=== PATIENT | female | born 1970 | race Caucasian/White ===

== ENCOUNTER → 2023-12-01 16:48 | Outpatient (REF) | payer BC, SELFPAY ==
[2023-12-01 18:02] LABS: % Basophils 0.2 % (0-2); % Immature Granulocytes 0.3 % (0-0.5); % Lymphocytes 35.1 % (20.5-51.1); % Monocytes 10.2 % (1.7-9.3); % Neutrophils 53.2 % (42.2-75.2); Absolute Eosinophils 0.1 10^3/uL (0-0.7); Absolute Lymphocytes 2.2 10^3/uL (1.2-3.4); Absolute Monocytes 0.6 10^3/uL (0.1-0.6); Absolute Neutrophils 3.3 10^3/uL (1.4-6.5); Hematocrit 44.2 % (37.0-47.0); Hemoglobin 14.4 g/dL (12.0-16.0); Mean Corp Hgb Conc. 32.6 g/dL (33.0-37.0); Mean Corpuscular Hgb 28.6 pg (27.0-31.0); Mean Corpuscular Volume 87.9 fL (81.0-99.0); Nucleated Red Blood Cells % 0 %; Platelet Count 40 10^3/uL (130-400); Red Blood Cell Count 5.03 10^6/uL (4.20-5.40); Red Cell Dist. Width 12.8 % (11.5-14.5); White Blood Cell Count 6.3 10^3/uL (4.8-10.8)
== END ==
LOC: REG 16:48
PROVIDERS: ATTENDING PHYSICIAN Internal Medicine Hematology & Oncology; FAMILY PHYSICIAN Physician Assistant Medical
DX: D69.3 Immune thrombocytopenic purpura (principal); N61.0 Mastitis without abscess
CPT/HCPCS: 36415; 85025

== ENCOUNTER → 2023-12-11 13:30 | Outpatient (REF) | payer BC, SELFPAY ==
[2023-12-11 14:14] LABS: % Basophils 0.1 % (0-2); % Eosinophils 0.6 % (0-6); % Immature Granulocytes 0.4 % (0-0.5); % Lymphocytes 33.7 % (20.5-51.1); % Monocytes 9.6 % (1.7-9.3); % Neutrophils 55.6 % (42.2-75.2); Absolute Lymphocytes 2.4 10^3/uL (1.2-3.4); Absolute Monocytes 0.7 10^3/uL (0.1-0.6); Hematocrit 44.1 % (37.0-47.0); Hemoglobin 14.5 g/dL (12.0-16.0); Mean Corp Hgb Conc. 32.9 g/dL (33.0-37.0); Mean Corpuscular Hgb 28.5 pg (27.0-31.0); Mean Corpuscular Volume 86.6 fL (81.0-99.0); Nucleated Red Blood Cells % 0 %; Platelet Count 38 10^3/uL (130-400); Red Blood Cell Count 5.09 10^6/uL (4.20-5.40); Red Cell Dist. Width 12.9 % (11.5-14.5); White Blood Cell Count 7.1 10^3/uL (4.8-10.8)
== END ==
LOC: REG 13:30
PROVIDERS: ATTENDING PHYSICIAN Internal Medicine Hematology & Oncology; FAMILY PHYSICIAN Physician Assistant Medical
DX: D69.3 Immune thrombocytopenic purpura (principal); N61.0 Mastitis without abscess
CPT/HCPCS: 36415; 85025

== ENCOUNTER 2023-12-15 13:17 | Outpatient (RCR) | payer BC, SELFPAY ==
[2023-12-15 13:28] LABS: % Basophils 0.1 % (0-2); % Immature Granulocytes 0.2 % (0-0.5); % Monocytes 4.3 % (1.7-9.3); % Neutrophils 83.4 % (42.2-75.2); Absolute Lymphocytes 1.4 10^3/uL (1.2-3.4); Absolute Monocytes 0.5 10^3/uL (0.1-0.6); Absolute Neutrophils 9.7 10^3/uL (1.4-6.5); Hematocrit 43.7 % (37.0-47.0); Hemoglobin 14.6 g/dL (12.0-16.0); Mean Corp Hgb Conc. 33.4 g/dL (33.0-37.0); Mean Corpuscular Hgb 29.1 pg (27.0-31.0); Mean Corpuscular Volume 87.2 fL (81.0-99.0); Mean Platelet Volume 13.5 fL (7.4-10.4); Platelet Count 100 10^3/uL (130-400); Red Blood Cell Count 5.01 10^6/uL (4.20-5.40); White Blood Cell Count 11.6 10^3/uL (4.8-10.8)
== END 2023-12-27 23:59 | disposition home or self-care (01) ==
LOC: OID 13:17
PROVIDERS: Internal Medicine Hematology & Oncology; ATTENDING PHYSICIAN Internal Medicine Gastroenterology; FAMILY PHYSICIAN Physician Assistant Medical
DX: D69.3 Immune thrombocytopenic purpura (principal); N61.0 Mastitis without abscess
CPT/HCPCS: 36415; 85025; 86850; 86900; 86901

== ENCOUNTER → 2023-12-17 06:36 | Day surgery (SDC) | payer BC, SELFPAY | LOC: GI 06:36 | PROVIDERS: ATTENDING PHYSICIAN Internal Medicine Gastroenterology | DX: K63.5 Polyp of colon (principal); K57.30 Diverticulosis of large intestine without perforation or abscess without bleeding; K62.1 Rectal polyp; K64.8 Other hemorrhoids; R93.3 Abnormal findings on diagnostic imaging of other parts of digestive tract | CPT/HCPCS: 45385; 45380; 88305 ==

== ENCOUNTER 2023-12-23 17:09 | Observation (INO) | payer BC, SELFPAY ==
[2023-12-23] VITALS (10 sets, daily range): BP systolic 99–132; BP diastolic 70–84; BMI 34.4
--- NOTE | 2023-12-23 13:21 | ED.GENMED ---
History of Present Illness
General
Chief Complaint: Rectal Bleeding
Source: patient and physician
Exam Limitations: none
Time Seen by Provider: 12/23/23 12:48
Nursing documentation reviewed up to this point in time: agreed with
Travel History
Have you had any contact with someone who has COVID-19?: No
Do you have any symptoms of coronavirus? Fever > 100 degrees, chills, cough, shortness of breath, sore throat, loss of taste or smell, muscle aches, or headache?: No
History of Present Illness
History of Present Illness:
53-year-old female with past medical history of thrombocytopenia, anxiety presenting to the emergency department today with concerns of ongoing GI bleeding after having colonoscopy 6 days ago and multiple polyps removed. Has had some mild achiness
to the abdomen no lightheadedness no chest pain or shortness of breath. She is also claimed that the stool is also been dark in color.
Past History
Past History
ED Past Medical History: Other (Thrombocytopenia, celiac disease, fibromyalgia, rheumatoid arthritis)
ED Past Surgical History: Gynecological, Orthopedic and Other (Breast reduction)
Social History
Tobacco: Former smoker
Drug: None
Personal:
Living: with family
Employment: Employed
Family History
Family History: Other
Review of Systems
Review of Systems
Allergies reviewed?: Yes
All Other Systems: ROS reviewed and negative except as documented in HPI and ROS
Phy Exam
Physical Exam
Physical Exam:
GENERAL: Alert , in no apparent distress
EYE: pupils equal and reactive
NECK: Supple, no significant adenopathy.
ENT: o/p clr, mmm.
CARDIAC: Regular rate and rhythm .
LUNGS: Clear breath sounds bilaterally, no acute respiratory distress, no wheezes/rales/rhonchi
ABDOMEN: Mild diffuse abdominal pain. Additionally patient's rectal examination revealed a mixture of red blood and dark brown stool
NEUROLOGICAL: Alert and oriented, no focal neuro deficits
SKIN: Warm and dry, skin intact.
MUSCULOSKELETAL: No edema, well perfused.
PSYCH: Normal and appropriate interaction.
Course
Orders/Labs/Results
Orders:
Orders
12/23/23 Lunch
Clear Liquid
At Your Request: Full Participation
Clear Liquids: No red liquids
12/23/23 13:08
Type+Screen Urgent
CBC/With Diff [Complete Blood Count/With Diff] Urgent
CMP [Comprehensive Metabolic Panel] Urgent
12/23/23 13:11
CT Abd/Pel (IV only)-DH only Urgent
Comment:
Reason For Exam: diffuse pain abd after [polyp removakl last week
12/23/23 14:56
* Blood Bank Products Urgent
Blood Bank Products: *Plt Single Donor Leuko
Quantity: 1
Transfuse Today: Yes
Reason: Bleeding
Abnormal Lab Results
12/23/23
13:08
MCHC 32.9 L g/dL
(33.0-37.0)
Plt Count 44 L 10^3/uL
(130-400)
Abs Immat Gran (auto) 0.1 H 10^3/uL
(0-0.05)
Absolute Monos (auto) 0.8 H 10^3/uL
(0.1-0.6)
Immature Gran % 0.9 H %
(0-0.5)
Monocytes % 9.8 H %
(1.7-9.3)
AST 40 H U/L
(14-36)
ALT 54 H U/L
(0-35)
12/23/23 13:08
12/23/23 13:08
Vital Signs
Initial and Last Documented VS:
Initial Vital Signs
Temp Pulse Resp BP Pulse Ox
98.3 F 95 16 132/83 98
12/23/23 12:31 03/27/24 12:31 12/23/23 12:31 12/23/23 12:31 12/23/23 12:31
Last Documented Vital Signs
Temp Pulse Resp BP Pulse Ox
98 F 81 16 99/84 99
12/23/23 16:10 12/23/23 16:10 12/23/23 16:10 12/23/23 16:10 12/23/23 16:10
MDM/Problems Addressed
MDM/Problems Addressed:
53-year-old female presenting to the emergency department with concerns of ongoing bleeding after colonoscopy 6 days ago where she had multiple polyps removed. Stool here is a dark brown almost black in color as well as mixed in red blood. No
obvious hemorrhage mild discomfort throughout the abdomen. Case discussed with GI plan to get a CT scan and labs for further assessment. CT scan without emergent findings. Patient platelets were low in the 40,000's. Patient was given platelets
will be admitted for monitoring to ensure that bleeding is improving concerning her hemoglobin decreased by 2 points in the last week.
*Critical Care Note
Total Time (30-74mins, 75-104mins- exclusive of procedures): Not Applicable
ED Attending Note
-
Portions of this chart may have been created with voice recognition software.� Occasional wrong word or��sound alike� substitutions may have occurred due to the inherent limitations of voice recognition software.
Discharge Plan
Departure
Patient Disposition: Admit
Date of Disposition: 12/23/23
Time of Disposition: 16:44
Admit to: Med/Surg
Admit to doctor: Letty
Presentation/result/management discussed w/ accepting MD/DO: Hospitalist
Patient with high blood pressure during this ER visit?: No
Condition: Good
Covid-19: Not Applicable
Discharge Problem:
Acute GI bleeding, Thrombocytopenia
Prescriptions:
No Action
venlafaxine 75 MG capsule,extended release 24hr
75 mg PO DAILY
ascorbic acid (vitamin C) [Vitamin C] 1,000 MG tablet
1,000 mg PO DAILY
atorvastatin 10 mg Tablet
10 mg PO DAILY
oxybutynin chloride 10 mg Tablet Extended Release 24hr
10 mg PO DAILY
omeprazole 20 mg Capsule,Delayed Release(Dr/Ec)
20 mg PO QPM
vitamin B complex Tablet
1 tab PO DAILY
cholecalciferol (vitamin D3) 25 mcg (1,000 unit) Tablet
25 mcg PO DAILY
omega 4-ggk-ota-fish oil [Fish Oil] 1,000 mg (120 mg-180 mg) Capsule
1 cap PO QPM
red yeast rice 600 mg Tablet
600 mg PO QPM
milk thistle
1 tab PO QPM
Referrals:
Leonor Arroyo PA [Family Provider] -
Interventions
Interventions:
*Risk Screen - Suicide Last Done: 12/23/23 12:31
*General Assessment Last Done: 12/23/23 12:31
*Neglect/Abuse Screening Last Done: 12/23/23 12:31
*ED COVID-19 Vaccine History Last Done: 12/23/23 13:13
GS-Znzhbt-Bgaidfjnhk Assessment Last Done: 12/23/23 13:13
ED- Cardiac Assessment Last Done: 12/23/23 13:13
ED- Pulmonary Assessment Last Done: 12/23/23 13:13
Discharge Date and Time
Print Language: BENGALI
[2023-12-23 13:22] LABS: % Eosinophils 0.5 % (0-6); % Immature Granulocytes 0.9 % (0-0.5); % Lymphocytes 32.1 % (20.5-51.1); % Monocytes 9.8 % (1.7-9.3); % Neutrophils 56.7 % (42.2-75.2); Absolute Immature Granulocytes 0.1 10^3/uL (0-0.05); Absolute Lymphocytes 2.6 10^3/uL (1.2-3.4); Absolute Monocytes 0.8 10^3/uL (0.1-0.6); Absolute Neutrophils 4.5 10^3/uL (1.4-6.5); Hematocrit 37.1 % (37.0-47.0); Hemoglobin 12.2 g/dL (12.0-16.0); Mean Corp Hgb Conc. 32.9 g/dL (33.0-37.0); Mean Corpuscular Hgb 28.7 pg (27.0-31.0); Mean Corpuscular Volume 87.3 fL (81.0-99.0); Nucleated Red Blood Cells % 0 %; Red Blood Cell Count 4.25 10^6/uL (4.20-5.40); Red Cell Dist. Width 13.2 % (11.5-14.5); White Blood Cell Count 7.9 10^3/uL (4.8-10.8)
[2023-12-23 13:34] LABS: ALT (SGPT) 54 U/L (0-35); AST (SGOT) 40 U/L (14-36); Albumin 4.4 g/dl (3.5-5.0); Alkaline Phosphatase 95 U/L (38-126); Blood Urea Nitrogen 15 mg/dl (7-17); Calcium 9.6 mg/dl (8.4-10.2); Carbon Dioxide 28 mmol/L (22-30); Chloride 104 mmol/L (98-107); Glucose 96 mg/dl (70-99); Potassium 3.8 mmol/L (3.5-5.1); Sodium 137 mmol/L (135-145); Total Bilirubin 0.5 mg/dl (0.2-1.3); Total Protein 7.8 g/dl (6.3-8.2); eGFR > 60.00
[2023-12-23 13:39] LABS: Platelet Count 44 10^3/uL (130-400)
--- NOTE | 2023-12-23 14:34 | CON.GI ---
Addendum entered and electronically signed by Yevgeniy Villafana MD 12/23/23 20:14:
I saw and examined the patient.
The PA's note was reviewed and I agree with the note.
Comment:
The pt is a 53 year old female with h/o ITP, GERD, hypercholesterolemia, celiac disease, hepatic steatosis who p/w melena after recent colonoscopy. She was seen by oncology and given steroid prior to procedure with platelets up to 100,000. She
completed colonoscopy 12/16 with diverticulosis normal ileum and resections of multiple sub-centimeter polyps, and had been having melena since. Rectal in ER with red and some dark brown stool. She was noted to have thrombocytopenia with platelets
down to 44k. Hgb 12.2 on admission.
Impression / Rec:
1. Melena after polypectomy - consistent with polypectomy bleed, likely 2/2 thrombocytopenia (44k) from ITP. Agree with platelet tx. If her plt improves and Hgb remains stable, anticipate early d/c, although may need hematology input for
sustaining plt > 50k until her post polypectomy bleed resolves.
Original Note:
Consultation
-
Date/Time Consultation Requested: 12/23/23 1310
Date/Time Consultation Performed: 12/23/23 1430
Requesting Provider: Silvano Woodson PA-C
Performing Provider: ANNY Kenny, Yevgeniy Villafana MD
Reason for Consultation: rectal bleeding
Medical History
Chief Complaint / HPI
Chief Complaint: blood stools
History of Present Illness:
Pt is a 53yo with hx ITP with chronic low platelets, GERD, hypercholesterolemia, rectocele, fibromyalgia, celiac disease, ITP, psoriasis, pre DM, anxiety, thyroid nodule, hepatic steatosis, rectocele,constipation, hyperhidrosis, fatty liver,
elevated LFT's. She completed virtual colonoscopy in September with cecal, distal ascending and sigmoid polyp. She was seen by oncology and given steroid prior to procedure with platelets up to 100,000. She completed colonoscopy 12/16 with
diverticulosis normal ileum, 6 mm AC polyp- TA, 3 mm distal AC polyp HP, 5 mm sigmoid polyp - HP and 2 mm rectal polyp- HP. she states since procedure she has been seeing formed black stools and some red stool with some red blood with dripping.
Rectal in ER with red and some dark brown stool with platelets down to 44,000 on admission. hbg was 14. 6 on 12/14 and drop to 12.[address] on admission with fat containing umbilical hernia, fatty liver, small HH.
Pt otherwise denies dysphagia, GERD, nausea, vomiting, abdominal pain, diarrhea, or constipation since colonoscopy but noted with chronic constipation with Miralax and Benefiber use. No anticoagulation prior to admission.
Past Medical History
Past Medical History: GERD, Hypercholesterolemia and Other (fibromyalgia, celiac disease, ITP, psoriasis, pre DM, anxiety, thyroid nodule, hepatic steatosis, rectocele,constipation, hyperhidrosis, fatty liver, elevated LFT's )
Past Surgical History: Gynecological (LEEP, breast BX 2021 and 2022), Orthopedic (rotator cuff, biceps repair, arthroscopy) and Other (facial surgery, endometrial ablation)
Social History
Tobacco: Non-Smoker
Alcohol: None
Drug: None
Personal:
Living: With Family
Family History
Family History: Adopted
Allergies / Home Medications
Allergy/AdvReac Type Severity Reaction Status Date / Time
No Known Allergies Allergy Verified 12/23/23 12:31
�Medication �Instructions �Recorded
venlafaxine 75 mg capsule,extended 75 mg PO DAILY 07/08/18
release 24 hr
ascorbic acid (vitamin C) 1,000 mg 1,000 mg PO DAILY 11/02/19
tablet (Vitamin C)
atorvastatin 10 mg tablet 10 mg PO DAILY 12/23/23
cholecalciferol (vitamin D3) 25 25 mcg PO DAILY 12/23/23
mcg (1,000 unit) tablet
milk thistle 1 tab PO QPM 12/23/23
omega 9-lgq-lfp-fish oil 1,000 mg 1 cap PO QPM 12/23/23
(120 mg-180 mg) capsule (Fish Oil)
omeprazole 20 mg capsule,delayed 20 mg PO QPM 12/23/23
release
oxybutynin chloride 10 mg 10 mg PO DAILY 12/23/23
tablet,extended release 24 hr
red yeast rice 600 mg tablet 600 mg PO QPM 12/23/23
vitamin B complex 1 tab PO DAILY 12/23/23
Review of Systems
-
History Source: Patient
Constitutional: Reports Weight Loss (few lbs )
EENT: Reports No Symptoms
Respiratory: Reports No Symptoms
Cardiac: Reports No Symptoms
Abdomen/GI: Reports Bloody Stools and Black Stools
: Reports No Symptoms
Musculoskeletal: Reports No Symptoms
Skin: Reports No Symptoms
Neurological: Reports No Symptoms
Endocrine: Reports No Symptoms
Hematologic/Lymphatic: Reports Bleeding
Vital Signs
Temp Pulse Resp BP Pulse Ox
98.3 F 95 16 132/83 98
12/23/23 12:31 12/23/23 12:31 12/23/23 12:31 12/23/23 12:31 12/23/23 12:31
Physical Exam
Exam
General: Well Developed, Well Nourished and No Apparent Distress
HEENT: Normocephalic and Anicteric
Respiratory: Clear
Cardiac: Regular Rhythm
GI: Soft, Non Tender and Non Distended
Rectal: Other (? tiny posterior fissure no bleeding, ER rectal dark brown and red stool)
Musculoskeletal: No Clubbing and No Cyanosis
Skin: Warm and Dry
Neuro: Awake, Alert and AO x 3
Psych: Calm
Results
WBC 7.9 10^3/uL (4.8-10.8) 12/23/23 13:08
Hgb 12.2 g/dL (12.0-16.0) 12/23/23 13:08
Hct 37.1 % (37.0-47.0) 12/23/23 13:08
MCV 87.3 fL (81.0-99.0) 12/23/23 13:08
Plt Count 44 10^3/uL (130-400) L 12/23/23 13:08
Absolute Neuts (auto) 4.5 10^3/uL (1.4-6.5) 12/23/23 13:08
Sodium 137 mmol/L (135-145) 12/23/23 13:08
Potassium 3.8 mmol/L (3.5-5.1) 12/23/23 13:08
Chloride 104 mmol/L (98-107) 12/23/23 13:08
Carbon Dioxide 28 mmol/L (22-30) 12/23/23 13:08
BUN 15 mg/dl (7-17) 12/23/23 13:08
Creatinine 0.7 mg/dL (0.6-1.0) 12/23/23 13:08
Calcium 9.6 mg/dl (8.4-10.2) 12/23/23 13:08
Total Bilirubin 0.5 mg/dl (0.2-1.3) 12/23/23 13:08
AST 40 U/L (14-36) H 12/23/23 13:08
ALT 54 U/L (0-35) H 12/23/23 13:08
Alkaline Phosphatase 95 U/L (38-126) 12/23/23 13:08
Diagnostic Image Results:
12/23/23 CT with IV contrast
Likely tiny fat only containing umbilical hernia.
No right lower quadrant inflammatory changes, intestinal obstruction, obstructive uropathy or free air.
Probable mild diffuse fatty liver.
Possible small hiatal hernia.
virtual colonoscopy 09/2023
6.8 mm sessile polyp in the cecum.
4.7 mm sessile polyp between folds in the distal ascending colon.
4.4 mm sessile polyp in the sigmoid colon.
12/17/23 Non-bleeding internal hemorrhoids.
- Diverticulosis in the sigmoid colon and in the
descending colon.
- The examination was otherwise normal.
- The examined portion of the ileum was normal.
- One 6 mm polyp in the ascending colon, removed with
a cold snare. Resected and retrieved.
- One 3 mm polyp in the distal ascending colon,
removed with a jumbo cold forceps. Resected and
retrieved.
- One 5 mm polyp in the sigmoid colon, removed with a
jumbo cold forceps. Resected and retrieved.
- One 2 mm polyp in the rectum, removed with a jumbo
cold forceps. Resected and retrieved.
Assessment / Plan
-
Pt is a 53yo with hx ITP with chronic low platelets, GERD, hypercholesterolemia, rectocele, fibromyalgia, celiac disease, ITP, psoriasis, pre DM, anxiety, thyroid nodule, hepatic steatosis, rectocele,constipation, hyperhidrosis, fatty liver,
elevated LFT's. She completed virtual colonoscopy in September with cecal, distal ascending and sigmoid polyp. She was seen by oncology and given steroid prior to procedure with platelets up to 100,000. She completed colonoscopy 12/16 with
diverticulosis normal ileum, 6 mm AC polyp- TA, 3 mm distal AC polyp HP, 5 mm sigmoid polyp - HP and 2 mm rectal polyp- HP. she states since procedure she has been seeing formed black stools and some red stool with some red blood with dripping.
Rectal in ER with red and some dark brown stool with platelets down to 44,000 on admission. hbg was 14. 6 on 12/14 and drop to 12.[address] on admission with fat containing umbilical hernia, fatty liver, small HH.
-post polypectomy bleeding
-ITP with thrombocytopenia
-constipation
-possible small fissure on exam
other medical problems:
-GERD
-hypercholesterolemia
-fibromyalgia
-celiac disease
-psoriasis
-pre DM
-anxiety
-hepatic steatosis
-rectocele
PLAN:
etiology of bleeding related to post polypectomy bleeding in setting of ITP and low platelets vs other (very small posterior fissure noted on exam)
admit for monitoring
pt was given steroids prior to colonoscopy now off but platelets now down to 44,[address] Almanzar([facility] hematology) and DrJitendra Do agree with platelet transfusion can consider further steroid course
if bleeding persists consider repeat colonoscopy with endoscopic treatment
trend CBC
ok for clear diet-- gluten free diet when advanced
updated pt on plan
will follow
-
-
Thank you for consultation and allowing me to participate in the patient's care. Please call the region manager GI physician during the after hours with any questions or concerns.
--- NOTE | 2023-12-23 16:48 | HPS.HSE ---
Family Physician
-
Family Physician: Leonor Arroyo
Chief Complaint
-
rectal bleeding
History of Present Illness
53-year-old female with past medical history of anxiety, ITP, GERD, hypercholesteremia, rectocele, fibromyalgia, celiac disease, psoriasis, prediabetes, thyroid nodule, hepatic steatosis, constipation, presenting with formed black stool and some red
stool with dripping since she had colonoscopy on 12/16 which showed diverticulosis and polyps which were resected. Denies nausea vomiting, abdominal pain, diarrhea or constipation since colonoscopy but has chronic constipation.
Patient was recently treated with a 5-day course of steroids for ITP platelets in the 30s which she completed 4 days ago.
Denies smoking alcohol use.
Medical History
Past Medical History
Past Medical History: Reports Other (anxiety, ITP, GERD, hypercholesteremia, rectocele, fibromyalgia, celiac disease, psoriasis, prediabetes, thyroid nodule, hepatic steatosis, constipation)
Past Surgical History: Reports Other (Gynecological (LEEP, breast BX 2021 and 2022), Orthopedic (rotator cuff, biceps repair, arthroscopy) and Other (facial surgery, endometrial ablation))
Social History
Tobacco: Non-smoker
Alcohol: None
Drug: None
Family History
Family History: Not pertinent
Allergies / Home Medications
Allergies reflects when Allergies were last updated in [facility].
Home Medications with original date entered in [facility]
Allergy/Medication List:
Allergies
Allergy/AdvReac Type Severity Reaction Status Date / Time
No Known Allergies Allergy Verified 12/23/23 12:31
Home Medications
venlafaxine 75 mg capsule,extended release 24 hr 75 mg PO DAILY 07/08/18
ascorbic acid (vitamin C) 1,000 mg tablet (Vitamin C) 1,000 mg PO DAILY 11/02/19
atorvastatin 10 mg tablet 10 mg PO DAILY 12/23/23
cholecalciferol (vitamin D3) 25 mcg (1,000 unit) tablet 25 mcg PO DAILY 12/23/23
milk thistle 1 tab PO QPM 12/23/23
omega 6-cdb-rtw-fish oil 1,000 mg (120 mg-180 mg) capsule (Fish Oil) 1 cap PO QPM 12/23/23
omeprazole 20 mg capsule,delayed release 20 mg PO QPM 12/23/23
oxybutynin chloride 10 mg tablet,extended release 24 hr 10 mg PO DAILY 12/23/23
red yeast rice 600 mg tablet 600 mg PO QPM 12/23/23
vitamin B complex 1 tab PO DAILY 12/23/23
Review of Systems
-
History Source: Patient
A 12 point ROS was completed and negative except as noted: Yes
Constitutional: Reports No Symptoms
EENT: Reports No Symptoms
Respiratory: Reports No Symptoms
Cardiac: Reports No Symptoms
Abdomen/GI: Reports See HPI
: Reports No Symptoms
Musculoskeletal: Reports No Symptoms
Skin: Reports No Symptoms
Neurological: Reports No Symptoms
Endocrine: Reports No Symptoms
Hematologic/Lymphatic: Reports No Symptoms
Psych: Reports No Symptoms
Physical Exam
Vital Signs
Vital Signs
Temp Pulse Resp BP Pulse Ox
98 F 81 16 99/84 99
12/23/23 16:10 12/23/23 16:10 12/23/23 16:10 12/23/23 16:10 12/23/23 16:10
Physical Exam
General: Well Developed, Well Nourished and No Apparent Distress
HEENT: NormoCephalic, Moist mucous membranes and Atraumatic
Respiratory: Clear
Cardiac: S1/S2 and Regular Rhythm; No Murmur or Rub
GI: Soft, Non Tender, Non Distended and Normal Bowel Sounds; No Organomegaly
Rectal: Deferred by Provider
Musculoskeletal: No Clubbing, No Cyanosis and No Edema
Skin: No Rash
Neuro: Nonfocal/grossly intact
Laboratory Results
-
12/23/23 13:08
12/23/23 13:08
Laboratory Results
Total Bilirubin 0.5 mg/dl (0.2-1.3) 12/23/23 13:08
AST 40 U/L (14-36) H 12/23/23 13:08
ALT 54 U/L (0-35) H 12/23/23 13:08
Alkaline Phosphatase 95 U/L (38-126) 12/23/23 13:08
Data Reviewed
-
Lab Data: Labs Reviewed by me
Old Records: Reviewed
Impression/Plan
-
IMPRESSION:
PLAN:
# Post polypectomy bleeding
-Hemoglobin 12.2
-monitor Hb
-Clear liquid diet
-If persistent bleeding then requires repeat colonoscopy as per GI
# Thrombocytopenia secondary to ITP
-Platelets down to 44 from 100 from 8 days ago
-GI reviewed with Dr. Almanzar of hematology who agreed with 1 unit platelet transfusion
-May require further steroids if inadequate response to platelet transfusion
-Hematology consulted
Anxiety
-Continue venlafaxine
Celiac disease
GERD
-Continue omeprazole
History of constipation
Hypercholesterolemia
-Continue statin
History of rectocele
Hepatic steatosis
Fibromyalgia
Psoriasis
Prediabetes
Thyroid nodule
Full code
DVT prophylaxis�SCDs
Clear liquid diet
--- NOTE | 2023-12-23 17:41 | CM ---
CM reviewed medical records. Patient confirmed demographics. Patient lives independently. Patient does not have a history of VN, SNF or DME. Patient is active with her PCP. Patient uses [facility] for medication services. OBS letter given.
PLAN: home no needs.
[2023-12-23] MEDS: PROTONIX 40 MG PO (18:31)
--- NOTE | 2023-12-23 19:52 | PTCARENOTE ---
Rn [employer] [employer] [employer]-Patient complaining of gas pains in her abdomin. Patient states that she takes gas-x at home. Antonio texted Sharonda Reyez who order one dose.
[2023-12-23] MEDS: MYLICON 80 MG PO (20:16)
[2023-12-24 00:45] LABS: Hemoglobin 11.3 g/dL (12.0-16.0)
[2023-12-24 07:44] LABS: % Basophils 0.2 % (0-2); % Immature Granulocytes 0.5 % (0-0.5); % Lymphocytes 31.6 % (20.5-51.1); % Monocytes 11.1 % (1.7-9.3); % Neutrophils 55.6 % (42.2-75.2); Absolute Eosinophils 0.1 10^3/uL (0-0.7); Absolute Lymphocytes 1.9 10^3/uL (1.2-3.4); Absolute Monocytes 0.7 10^3/uL (0.1-0.6); Absolute Neutrophils 3.3 10^3/uL (1.4-6.5); Hemoglobin 11.7 g/dL (12.0-16.0); Mean Corp Hgb Conc. 33.4 g/dL (33.0-37.0); Mean Corpuscular Hgb 29.3 pg (27.0-31.0); Mean Corpuscular Volume 87.5 fL (81.0-99.0); Nucleated Red Blood Cells % 0 %; Platelet Count 40 10^3/uL (130-400); Red Cell Dist. Width 13.5 % (11.5-14.5); White Blood Cell Count 5.9 10^3/uL (4.8-10.8)
[2023-12-24 07:58] VITALS: BP 112/71
[2023-12-24] MEDS: VITAMIN C 1000 MG PO (08:28)
[2023-12-24] MEDS: DITROPAN 5 MG PO ×2 (08:28→20:21)
[2023-12-24] MEDS: B COMPLEX w/VITAMIN C 1 CAPLET PO (08:28)
[2023-12-24] MEDS: LIPITOR 10 MG PO (08:28)
[2023-12-24] MEDS: VITAMIN D3 (cholecalciferol) 25 MCG PO (08:28)
[2023-12-24] MEDS: EFFEXOR XR 75 MG PO (08:29)
[2023-12-24 08:39] LABS: ALT (SGPT) 58 U/L (0-35); AST (SGOT) 46 U/L (14-36); Albumin 3.7 g/dl (3.5-5.0); Alkaline Phosphatase 97 U/L (38-126); Blood Urea Nitrogen 10 mg/dl (7-17); Calcium 9.1 mg/dl (8.4-10.2); Carbon Dioxide 26 mmol/L (22-30); Chloride 108 mmol/L (98-107); Estimated Creatinine Clearance 88 ml/min; Glucose 97 mg/dl (70-99); Potassium 3.9 mmol/L (3.5-5.1); Sodium 137 mmol/L (135-145); Total Bilirubin 0.4 mg/dl (0.2-1.3); Total Protein 6.7 g/dl (6.3-8.2); eGFR > 60.00
--- NOTE | 2023-12-24 12:08 | CON.ONC ---
Impression
Impression
ITP
Post polypectomy bleeding with stable hemoglobin 11.7 g/dL
GERD
Hypercholesterolemia
Fibromyalgia celiac disease
Psoriasis
Metabolic dysfunction with MASH
Plan
Plan
No response to platelet transfusion
Monitor for concomitant coagulopathy
Reinitiate prednisone 60 mg daily
Consider addition of IgG 30 g daily x 4
Monitor CBC
Patient History
History of Present Illness
53-year-old female with past medical history of anxiety, ITP, GERD, hypercholesteremia, rectocele, fibromyalgia, celiac disease, psoriasis, prediabetes, thyroid nodule, hepatic steatosis, constipation, presenting with formed black stool and some red
stool with dripping since she had colonoscopy on 12/16 which showed diverticulosis and polyps which were resected. Denies nausea vomiting, abdominal pain, diarrhea or constipation since colonoscopy but has chronic constipation. Patient was recently
treated with a 5-day course of steroids with self-imposed taper prior to procedure with last dose of steroids Thursday. She has typically been steroid responsive. Her platelet count runs 30-40 K as a baseline. Currently 40 K. Patient destains
steroids as she has a euphoric withdrawal which is quite dramatic.
Past-Medical/Surgical History
Past Medical History: GERD, Hypercholesterolemia,fibromyalgia, celiac disease, ITP, psoriasis, pre DM, anxiety, thyroid nodule, hepatic steatosis, rectocele,constipation, hyperhidrosis, MASH-elevated LFT's
Past Surgical History: Gynecological (LEEP, breast BX 2021 and 2022, endometrial ablation), Orthopedic (rotator cuff, biceps repair, arthroscopy and facial surgery
Social History
Tobacco: Non-Smoker
Alcohol: None
Drug: None
Personal:
Living: With Family
Family History
Family History: Adopted
Patient Medication
�Medication �Instructions �Recorded �Confirmed �Last Taken �Type
venlafaxine 75 mg capsule,extended 75 mg PO DAILY Mental 07/08/18 12/23/23 12/23/23 History
release 24 hr Health/Anxiety
ascorbic acid (vitamin C) 1,000 mg 1,000 mg PO DAILY Supplement 11/02/19 12/23/23 12/23/23 History
tablet (Vitamin C)
atorvastatin 10 mg tablet 10 mg PO DAILY High Cholesterol 12/23/23 12/23/23 12/23/23 History
cholecalciferol (vitamin D3) 25 25 mcg PO DAILY Supplement 12/23/23 12/23/23 12/23/23 History
mcg (1,000 unit) tablet
milk thistle 1 tab PO QPM 12/23/23 12/23/23 12/22/23 History
omega 7-wfl-oyw-fish oil 1,000 mg 1 cap PO QPM 12/23/23 12/23/23 12/22/23 History
(120 mg-180 mg) capsule (Fish Oil)
omeprazole 20 mg capsule,delayed 20 mg PO QPM Gastrointestinal Issue 12/23/23 12/23/23 12/22/23 History
release
oxybutynin chloride 10 mg 10 mg PO DAILY Urinary Issue 12/23/23 12/23/23 12/23/23 History
tablet,extended release 24 hr
red yeast rice 600 mg tablet 600 mg PO QPM 12/23/23 12/23/23 12/22/23 History
simethicone 80 mg chewable tablet 80 mg PO HS PRN gas pains 12/23/23 12/23/23 Unknown History
vitamin B complex 1 tab PO DAILY Supplement 12/23/23 12/23/23 12/23/23 History
Active Medications
Generic Name Dose Route Start Last Admin
Trade Name Freq PRN Reason Stop Dose Admin
Ascorbic Acid 1,000 mg 12/24/23 08:00 12/24/23 08:28
Ascorbic Acid 500 Mg Tablet PO 01/21/24 07:59 1,000 mg
DAILY LISANDRO Administration
Atorvastatin Calcium 10 mg 12/24/23 08:00 12/24/23 08:28
Atorvastatin (Lipitor) 10 Mg Tablet PO 01/21/24 07:59 10 mg
DAILY LISANDRO Administration
Cholecalciferol 25 mcg 12/24/23 08:00 12/24/23 08:28
Cholecalciferol (Vitamin D3) 25 Mcg Tablet (1,000 Units) PO 01/21/24 07:59 25 mcg
DAILY LISANDRO Administration
Oxybutynin Chloride 5 mg 12/24/23 08:00 12/24/23 08:28
Oxybutynin 5 Mg Tablet PO 01/21/24 07:59 5 mg
BID LISANDRO Administration
Pantoprazole Sodium 40 mg 12/23/23 19:00 12/23/23 18:31
Pantoprazole 40 Mg Delayed Release Tablet PO 01/20/24 18:59 40 mg
QPM LISANDRO Administration
Sodium Chloride 0 flush 12/23/23 19:00
Sodium Chloride 0.9% (Flush) Syringe IV 01/20/24 18:59
PER PROTOCOL LISANDRO
Venlafaxine HCl 75 mg 12/24/23 08:00 12/24/23 08:29
Venlafaxine 75 Mg Extended Release Capsule PO 01/21/24 07:59 75 mg
DAILY LISANDRO Administration
Vitamin B Complex/Vitamin C 1 caplet 12/24/23 08:00 12/24/23 08:28
Vitamin B Complex With Vitamin C Caplet PO 01/21/24 07:59 1 caplet
DAILY LISANDRO Administration
Review of Systems
-
10 point review of systems fails to elicit additional complaints other than those reviewed in the HPI
Physical Exam
-
PE
General: Well Developed, Well Nourished and No Apparent Distress
HEENT: Normocephalic and Anicteric
Respiratory: Clear
Cardiac: Regular Rhythm
GI: Soft, Non Tender and Non Distended
Musculoskeletal: No Clubbing and No Cyanosis
Skin: Warm and Dry
Neuro: Awake, Alert and AO x 3
Psych: Calm
Labs
Lab Results
WBC 5.9 10^3/uL (4.8-10.8) 12/24/23 07:16
RBC 4.00 10^6/uL (4.20-5.40) L 12/24/23 07:16
Hgb Cancelled 12/24/23 08:00
Hct 35.0 % (37.0-47.0) L 12/24/23 07:16
MCV 87.5 fL (81.0-99.0) 12/24/23 07:16
MCH 29.3 pg (27.0-31.0) 12/24/23 07:16
MCHC 33.4 g/dL (33.0-37.0) 12/24/23 07:16
RDW 13.5 % (11.5-14.5) 12/24/23 07:16
Plt Count 40 10^3/uL (130-400) L 12/24/23 07:16
MPV 15.0 fL (7.4-10.4) H 12/24/23 07:16
Abs Immat Gran (auto) 0.0 10^3/uL (0-0.05) 12/24/23 07:16
Absolute Neuts (auto) 3.3 10^3/uL (1.4-6.5) 12/24/23 07:16
Absolute Lymphs (auto) 1.9 10^3/uL (1.2-3.4) 12/24/23 07:16
Absolute Monos (auto) 0.7 10^3/uL (0.1-0.6) H 12/24/23 07:16
Absolute Eos (auto) 0.1 10^3/uL (0-0.7) 12/24/23 07:16
Absolute Basos (auto) 0.0 10^3/uL (0-0.2) 12/24/23 07:16
Immature Gran % 0.5 % (0-0.5) 12/24/23 07:16
Neutrophils % 55.6 % (42.2-75.2) 12/24/23 07:16
Lymphocytes % 31.6 % (20.5-51.1) 12/24/23 07:16
Monocytes % 11.1 % (1.7-9.3) H 12/24/23 07:16
Eosinophils % 1.0 % (0-6) 12/24/23 07:16
Basophils % 0.2 % (0-2) 12/24/23 07:16
Creatinine 0.8 mg/dL (0.6-1.0) 12/24/23 07:16
Vital Signs
Vital Signs
Temp Pulse Resp BP Pulse Ox
98 F 75 16 112/71 95
12/24/23 07:58 12/24/23 07:58 12/24/23 07:58 12/24/23 07:58 12/24/23 07:58
[2023-12-24] MEDS: DELTASONE 60 MG PO (12:40)
[2023-12-24 15:15] VITALS: BP 117/82
--- NOTE | 2023-12-24 15:22 | W.PN.GI.CBS2 ---
Addendum entered and electronically signed by Yevgeniy Villafana MD 12/24/23 21:29:
I saw and examined the patient.
The PA's note was reviewed and I agree with the note.
Comment:
s/p plt transfusion, plt 40k today. plan for repeat colonoscopy tomorrow.
Original Note:
Today's Communication / Plan
-
etiology of bleeding related to post polypectomy bleeding in setting of ITP and low platelets vs other (very small posterior fissure noted on exam)
still with low platelets and slow drop in hgb with 1 stool daily
reviewed with GI team, hematology and patient plan for colonoscopy in am to assess polyp sites and signs of bleeding to see if endotherapy needed
repeat CBC and PT/PTT in AM to see if any transfusion needed prior to procedure
ok for clear diet, NPO in AM- gluten free diet when advanced
will follow
Assessment / Plan
-
Pt is a 53yo with hx ITP with chronic low platelets, GERD, hypercholesterolemia, rectocele, fibromyalgia, celiac disease, ITP, psoriasis, pre DM, anxiety, thyroid nodule, hepatic steatosis, rectocele,constipation, hyperhidrosis, fatty liver,
elevated LFT's. She completed virtual colonoscopy in September with cecal, distal ascending and sigmoid polyp. She was seen by oncology and given steroid prior to procedure with platelets up to 100,000. She completed colonoscopy 12/16 with
diverticulosis normal ileum, 6 mm AC polyp- TA, 3 mm distal AC polyp HP, 5 mm sigmoid polyp - HP and 2 mm rectal polyp- HP. she states since procedure she has been seeing formed black stools and some red stool with some red blood with dripping.
Rectal in ER with red and some dark brown stool with platelets down to 44,000 on admission. hbg was 14. 6 on 12/14 and drop to 12.[address] on admission with fat containing umbilical hernia, fatty liver, small HH.
-post polypectomy bleeding
-ITP with thrombocytopenia
-constipation
-possible small fissure on exam
other medical problems:
-GERD
-hypercholesterolemia
-fibromyalgia
-celiac disease
-psoriasis
-pre DM
-anxiety
-hepatic steatosis
-rectocele
PLAN:
etiology of bleeding related to post polypectomy bleeding in setting of ITP and low platelets vs other (very small posterior fissure noted on exam)
still with low platelets and slow drop in hgb with 1 stool daily
reviewed with GI team, hematology and patient plan for colonoscopy in am to assess polyp sites and signs of bleeding to see if endotherapy needed
repeat CBC and PT/PTT in AM to see if any transfusion needed prior to procedure
ok for clear diet, NPO in AM- gluten free diet when advanced
will follow
Subjective
Subjective
Date of Service: December 24, 2023
on clear diet still with one stool last PM
Objective
Data Reviewed
Laboratory Data:
Laboratory Results
12/24/23 07:16
Laboratory Results
Total Bilirubin 0.4 mg/dl (0.2-1.3) 12/24/23 07:16
AST 46 U/L (14-36) H 12/24/23 07:16
ALT 58 U/L (0-35) H 12/24/23 07:16
Alkaline Phosphatase 97 U/L (38-126) 12/24/23 07:16
Vital Signs and I&O:
Vital Signs
Temp Pulse Resp BP Pulse Ox
98 F 75 16 112/71 95
12/24/23 07:58 12/24/23 07:58 12/24/23 07:58 12/24/23 07:58 12/24/23 07:58
I&O
12/23/23 12/24/23 12/25/23
06:59 06:59 06:59
Intake Total 282 / 282
Balance 282 / 282
Physical Exam
Physical Exam
HEENT: Anicteric and Moist mucous membranes
Cardiology: Normal Sinus Rhythm
Pulmonary: Clear
GI: Soft, Non Distended and Tender
Extremities: No Edema
Neuro: Non Focal
--- NOTE | 2023-12-24 15:23 | CM ---
met with patient at bedside.plts 40,continue prednisone.patient is out of bed and ambulating.
plan is dc home with no needs when stable.
[2023-12-24 16:24] LABS: Hemoglobin 12.3 g/dL (12.0-16.0)
[2023-12-24] MEDS: NULYTELY SOLUTION 4 LITERS PO (17:24)
[2023-12-24] MEDS: PROTONIX 40 MG PO (17:24)
--- NOTE | 2023-12-24 17:58 | W.PN.HOSP.TC ---
Today's Communication/Plan
-
Repeat colonoscopy tomorrow
Appreciate GI and Hematology
Assessment / Plan
Assessment / Plan
Physical Exam
General: Well Developed, Well Nourished and No Apparent Distress
HEENT: Normocephalic, Moist mucous membranes and Atraumatic
Respiratory: Clear
Cardiac: S1/S2 and Regular Rhythm
GI: Soft, Non Tender, Non Distended and Normal Bowel Sounds
Musculoskeletal: No Cyanosis and No Edema
Skin: Warm. Dry.
Neuro: Nonfocal/grossly intact

Assessment/Plan
# Post polypectomy bleeding
-Monitor Hgb
-Clear liquid diet but NPO after midnight
-Per gastroenterology, plan for colonoscopy in the morning to assess polyp sites and signs of bleeding to see if endotherapy needed and repeat CBC and PT/PTT in AM to see if any transfusion needed prior to procedure
# Thrombocytopenia secondary to ITP
-Platelets down to 44 from 100 from 8 days ago
-GI reviewed with Dr. Almanzar of hematology who agreed with 1 unit platelet transfusion
-However, no response to platelet transfusion
-Hematology consulted, recommendations appreciated
-No response to platelet transfusion
-Monitor for concomitant coagulopathy
-Restart prednisone 60 mg daily with consider for addition of IgG 30 g daily x 4 as per hematology
Anxiety
-Continue venlafaxine
Celiac disease
GERD
-Continue omeprazole
History of constipation
Hypercholesterolemia
-Continue statin
History of rectocele
Hepatic steatosis
Fibromyalgia
Psoriasis
Prediabetes
Thyroid nodule
Full code
DVT prophylaxis�SCDs
Clear liquid diet
Anticipated Discharge: > 48 hours
Subjective/Interval History
-
Date of Service: December 24, 2023
Patient was seen and examined. She reported some headache, no blurry vision or numbness or tingling, she did have some rectal bleeding last night, per her.
Objective Data
-
Labs:
Laboratory Results
12/24/23 12/24/23 12/24/23
07:16 08:00 16:14
WBC 5.9
Hgb 11.7 L Cancelled 12.3
Hct 35.0 L
Plt Count 40 L
Sodium 137
Potassium 3.9
Chloride 108 H
Carbon Dioxide 26
BUN 10
Creatinine 0.8
Glucose 97
Calcium 9.1
Total Bilirubin 0.4
AST 46 H
ALT 58 H
Alkaline Phosphatase 97
Vital Signs:
Vital Signs
Temp Pulse Resp BP Pulse Ox
97.9 F 78 16 117/82 98
12/24/23 15:15 12/24/23 15:15 12/24/23 15:15 12/24/23 15:15 12/24/23 15:15
I&O
12/23/23 12/24/23 12/25/23
06:59 06:59 06:59
Intake Total 282 / 282
Balance 282 / 282
[2023-12-24 23:24] VITALS: BP 110/75
[2023-12-25] VITALS (7 sets, daily range): BP systolic 12–119; BP diastolic 71–84
[2023-12-25 08:04] LABS: Hematocrit 34.9 % (37.0-47.0); Hemoglobin 11.8 g/dL (12.0-16.0); Mean Corp Hgb Conc. 33.8 g/dL (33.0-37.0); Mean Corpuscular Hgb 28.9 pg (27.0-31.0); Mean Corpuscular Volume 85.5 fL (81.0-99.0); Mean Platelet Volume 15.3 fL (7.4-10.4); Platelet Count 51 10^3/uL (130-400); Red Blood Cell Count 4.08 10^6/uL (4.20-5.40); Red Cell Dist. Width 13.4 % (11.5-14.5)
[2023-12-25] MEDS: VITAMIN C 1000 MG PO (08:08)
[2023-12-25] MEDS: DITROPAN 5 MG PO (08:08)
[2023-12-25] MEDS: B COMPLEX w/VITAMIN C 1 CAPLET PO (08:09)
[2023-12-25] MEDS: LIPITOR 10 MG PO (08:09)
[2023-12-25] MEDS: EFFEXOR XR 75 MG PO (08:09)
[2023-12-25] MEDS: VITAMIN D3 (cholecalciferol) 25 MCG PO (08:09)
[2023-12-25] MEDS: DELTASONE 60 MG PO (08:09)
[2023-12-25 08:11] LABS: INR 1.09; PT 13.9 Sec (11.4-14.6)
[2023-12-25 08:12] LABS: APTT 23.9 Sec (23.4-35.0)
[2023-12-25 08:50] LABS: Blood Urea Nitrogen 8 mg/dl (7-17); Calcium 9.8 mg/dl (8.4-10.2); Carbon Dioxide 27 mmol/L (22-30); Chloride 108 mmol/L (98-107); Estimated Creatinine Clearance 100 ml/min; Glucose 102 mg/dl (70-99); Potassium 4.3 mmol/L (3.5-5.1); Sodium 138 mmol/L (135-145); eGFR > 60.00
--- NOTE | 2023-12-25 10:00 | W.PN.UPDATE ---
Update Note
Progress Note Update
Colonoscopy complete. No blood, some light brown liquid stool in right colon. No bleeding site.
-resume diet
- no further inpatient w/u
- will sign off call with questions
--- NOTE | 2023-12-25 11:39 | W.PN.ONC2 ---
Today's Communication / Plan
-
Cleared for D/C from Heme standpoint.
Please d/c on prednisone 60 mg daily, we will taper as outpt.
Impression
Impression
ITP
Post polypectomy bleeding with stable hemoglobin overnight
GERD
Hypercholesterolemia
Fibromyalgia celiac disease
Psoriasis
Metabolic dysfunction with MASH
Plan
Plan
No response to platelet transfusion
However, Hgb has been stable and pt may go home
Subjective/Objective
Chief Complaint
Heme/Onc follow up of ITP, post-polypectomy bleed
Subjective
Colonoscopy performed, no bleeding. Pt denies further bleeding and wants to go home.
Vital Signs:
Vital Signs
Temp Pulse Resp BP Pulse Ox
97.6 F 77 18 113/75 95
12/25/23 10:36 12/25/23 10:36 12/25/23 10:36 12/25/23 10:36 12/25/23 10:36
Lab Results:
Laboratory Data
WBC 10.0 10^3/uL (4.8-10.8) 12/25/23 07:32
Hgb 11.8 g/dL (12.0-16.0) L 12/25/23 07:32
Plt Count 51 10^3/uL (130-400) L D 12/25/23 07:32
PT 13.9 Sec (11.4-14.6) 12/25/23 07:32
INR 1.09 12/25/23 07:32
APTT 23.9 Sec (23.4-35.0) 12/25/23 07:32
eGFR > 60.00 12/25/23 07:32
Physical Exam
HEENT: Moist Mucous Membranes; No Jaundice
Cardiology: Normal Sinus Rhythm, S1 and S2
Pulmonary: Clear; No Wheezes
GI: Soft and Normal Bowel Sounds
Extremities: Pulses Present; No No C/C/E
Neuro: Non Focal
Review of Systems
Review of Systems
Constitutional: Denies Fever or Fatigue
Head: Denies Sore Throat or Hearing Loss
Respiratory: Denies Dyspnea or Cough
Cardiovascular: Denies Chest Pain or Palpitations
Gastrointestinal: Denies Nausea/Vomiting or Diarrhea
Genitourinary: Denies Hematuria
Skin: Denies Rash or Pruritis
Neurological: Denies Headache or Numbness
Psychiatric: Denies Depression or Insomnia
Hem/Lymphatic: Reports Easy Bruising; Denies Night Sweats
--- NOTE | 2023-12-25 12:19 | CM ---
met with patient at bedside. patient with stable hgb will be dc home on po prednisone.family to transport home.patient will have no needs.plan home with no needs.
--- NOTE | 2023-12-25 13:17 | W.PN.HOSP.TC ---
Today's Communication/Plan
-
Discharge today
Assessment / Plan
Assessment / Plan
Physical Exam
General: Well Developed, Well Nourished and No Apparent Distress
HEENT: Normocephalic, Moist mucous membranes and Atraumatic
Respiratory: Clear to Auscultation Bilaterally
Cardiac: S1/S2 and Regular Rhythm
GI: Soft, Non Tender, Non Distended and Normal Bowel Sounds
Musculoskeletal: No Cyanosis and No Edema
Skin: Warm. Dry.
Neuro: Nonfocal/grossly intact

Assessment/Plan
# Post polypectomy bleeding
-Monitor Hgb
-Colonoscopy on December 25, 2023 showed no blood but some light brown liquid stool in the right colon.
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
-Platelets were down to 44 from 100 from 8 days prior to presentation
-GI reviewed with Dr. Almanzar of hematology who agreed with 1 unit platelet transfusion (transfused on 12/23/23)
-However initially, there was no response to platelet transfusion, then platelets increased to 51 on December 25, 2023
-Hematology consulted, recommendations appreciated
-Monitor for concomitant coagulopathy
-On discharge, continue prednisone 60 mg daily (hematology will taper this as an outpatient)
Anxiety
-Continue venlafaxine
Celiac disease
GERD
-Continue omeprazole
History of constipation
Hypercholesterolemia
-Continue statin
History of rectocele
Hepatic steatosis
Fibromyalgia
Psoriasis
Prediabetes
Thyroid nodule
Full code
DVT prophylaxis�SCDs
More than 30 minutes spent in discharge including
Final examination of the patient
Summarizing hospital stay
Instructions for continuing care to all relevant caregivers
Preparation of discharge records, prescriptions, and referral forms
Total time spent (in minutes): 35
Anticipated Discharge: Today
Subjective/Interval History
-
Date of Service: December 25, 2023
Patient was seen and examined. She reported blood in her stool, but later there were reports that she had no more bleeding. She would like to go home today.
Objective Data
-
Labs:
Laboratory Results
12/25/23
07:32
WBC 10.0
Hgb 11.8 L
Hct 34.9 L
Plt Count 51 L D
PT 13.9
INR 1.09
APTT 23.9
Sodium 138
Potassium 4.3
Chloride 108 H
Carbon Dioxide 27
BUN 8
Creatinine 0.7
Glucose 102 H
Calcium 9.8
Vital Signs:
Vital Signs
Temp Pulse Resp BP Pulse Ox
97.6 F 77 18 113/75 95
12/25/23 10:36 12/25/23 10:36 12/25/23 10:36 12/25/23 10:36 12/25/23 10:36
I&O
12/24/23 12/25/23 12/26/23
06:59 06:59 06:59
Intake Total 282 / 282 960 / 960
Balance 282 / 282 960 / 960
--- NOTE | 2023-12-25 14:17 | W.DS.TRANS ---
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
-
Discharge Instructions:
Discharge Diagnosis/Procedures # Post polypectomy bleeding
# Thrombocytopenia secondary to Immune
thrombocytopenic purpura
# Anxiety
# Celiac disease
# Gastroesophageal Reflux Disease
# History of constipation
# Hypercholesterolemia
# History of rectocele
# Hepatic steatosis
# Fibromyalgia
# Psoriasis
# Prediabetes
# Thyroid nodule
Diet As tolerated
Activity As tolerated
Driving Restrictions As prior to admission
Instructions:
Stand-Alone Forms:
Changes to Home Medications: Yes
Discharge Medications:
DC Medications w/original date entered in [employer]
venlafaxine 75 mg capsule,extended release 24 hr 75 mg PO DAILY Mental Health/Anxiety 07/08/18
ascorbic acid (vitamin C) 1,000 mg tablet (Vitamin C) 1,000 mg PO DAILY Supplement 11/02/19
atorvastatin 10 mg tablet 10 mg PO DAILY High Cholesterol 12/23/23
cholecalciferol (vitamin D3) 25 mcg (1,000 unit) tablet 25 mcg PO DAILY Supplement 12/23/23
milk thistle 1 tab PO QPM 12/23/23
omega 3-pca-ujj-fish oil 1,000 mg (120 mg-180 mg) capsule (Fish Oil) 1 cap PO QPM 12/23/23
omeprazole 20 mg capsule,delayed release 20 mg PO QPM Gastrointestinal Issue 12/23/23
oxybutynin chloride 10 mg tablet,extended release 24 hr 10 mg PO DAILY Urinary Issue 12/23/23
red yeast rice 600 mg tablet 600 mg PO QPM 12/23/23
simethicone 80 mg chewable tablet 80 mg PO HS PRN gas pains 12/23/23
vitamin B complex 1 tab PO DAILY Supplement 12/23/23
prednisone 20 mg tablet 60 mg (3 x 20 mg) PO DAILY #30 tabs 12/25/23
Home Medication Changes
Prednisone is a new medication.
Pending Results: No
Total time spent discharging patient (in min): 35
--- NOTE | 2023-12-28 07:31 | W.DCSUMMARY ---
Discharge Summary
Discharge Data
Date of Admission: 12/23/23
Date of Discharge: 12/25/23
Total time spent discharging patient (in min): 35
-
Pending Results: No
Hospital Course
53 y/o female with past medical history of anxiety, ITP, GERD, hypercholesteremia, rectocele, fibromyalgia, celiac disease, psoriasis, prediabetes, thyroid nodule, hepatic steatosis, constipation, presented with formed black stool and some red stool
with dripping since she had colonoscopy on 12/17/23 which showed diverticulosis and polyps, which were resected. On admission, there was a concern for post-polypectomy bleeding. On presentation, it was noted that patient was recently treated with a
5-day course of steroids for ITP platelets in the 30s which she completed 4 days prior to presentation. Her platelets were at 44 on admission decreased from ~8 days prior when it was 100. Gastroenterology and Hematology were consulted. Patient
received platelet transfusion without adequate response. Colonoscopy showed as per gastroenterology, congested mucosa in the sigmoid colon but was otherwise normal with no blood seen throughout the colon. Patient was discharged on Prednisone 60 mg
daily, as per hematology recommendations.
Discharge Plan
-
Patient Disposition: Home (Routine Discharge)
Discharge Diagnosis/Procedures: # Post polypectomy bleeding
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
# Anxiety
# Celiac disease
# Gastroesophageal Reflux Disease
# History of constipation
# Hypercholesterolemia
# History of rectocele
# Hepatic steatosis
# Fibromyalgia
# Psoriasis
# Prediabetes
# Thyroid nodule
Condition: Good
Diet: As tolerated
Activity: As tolerated
Driving Restrictions: As prior to admission
Referrals:
Leonor Arroyo PA [Family Provider] - in less than 1 week
Additional Discharge Medication Instructions: Prednisone is a new medication.
Prescriptions:
New
prednisone 20 mg Tablet
60 mg PO DAILY Qty: 30 1RF
Continued
venlafaxine 75 MG capsule,extended release 24hr
75 mg PO DAILY
ascorbic acid (vitamin C) [Vitamin C] 1,000 MG tablet
1,000 mg PO DAILY
atorvastatin 10 mg Tablet
10 mg PO DAILY
oxybutynin chloride 10 mg Tablet Extended Release 24hr
10 mg PO DAILY
omeprazole 20 mg Capsule,Delayed Release(Dr/Ec)
20 mg PO QPM
vitamin B complex Tablet
1 tab PO DAILY
cholecalciferol (vitamin D3) 25 mcg (1,000 unit) Tablet
25 mcg PO DAILY
omega 5-myt-biu-fish oil [Fish Oil] 1,000 mg (120 mg-180 mg) Capsule
1 cap PO QPM
red yeast rice 600 mg Tablet
600 mg PO QPM
milk thistle
1 tab PO QPM
simethicone 80 mg Tablet,Chewable
80 mg PO HS PRN (Reason: gas pains )
Discharge Orders:
Discharge Patient (As Directed); Ordered 12/25/23
Ordered By: Chago Borges
Discharge Date and Time
Discharge Date/Time: 12/25/23 16:02
Print Language: HONG KONG[place]
== END 2023-12-25 16:02 | disposition home or self-care (01) ==
LOC: 4 WEST ACU 17:09
PROVIDERS: Nurse Practitioner Adult Health; Physician Assistant; ADMITTING PHYSICIAN Hospitalist; ATTENDING PHYSICIAN Hospitalist; EMERGENCY PHYSICIAN Emergency Medicine; FAMILY PHYSICIAN Physician Assistant Medical; OTHER PHYSICIAN Internal Medicine Gastroenterology; OTHER PHYSICIAN Internal Medicine Hematology & Oncology
DX: K91.840 Postprocedural hemorrhage of a digestive system organ or structure following a digestive system procedure (principal); Y83.8 Other surgical procedures as the cause of abnormal reaction of the patient, or of later complication, without mention of misadventure at the time of the procedure; K90.0 Celiac disease; M79.7 Fibromyalgia; M06.9 Rheumatoid arthritis, unspecified; D69.3 Immune thrombocytopenic purpura; K21.9 Gastro-esophageal reflux disease without esophagitis; E78.00 Pure hypercholesterolemia, unspecified; F41.9 Anxiety disorder, unspecified; K76.0 Fatty (change of) liver, not elsewhere classified; L40.9 Psoriasis, unspecified; R73.03 Prediabetes; N81.6 Rectocele; K59.09 Other constipation; K42.9 Umbilical hernia without obstruction or gangrene; E04.1 Nontoxic single thyroid nodule; Z79.899 Other long term (current) drug therapy; Z87.891 Personal history of nicotine dependence
CPT/HCPCS: 45378; 36430; 74177; 80048; 80053; 85018; 85025; 85027; 85610; 85730; 86850; 86900; 86901; 87070; 99285; G0378; P9073; Q9967

== ENCOUNTER → 2024-04-21 12:00 | Outpatient (REF) | payer BC, SELFPAY | LOC: CLAB 12:00 | PROVIDERS: ATTENDING PHYSICIAN Student in an Organized Health Care Education/Training Program | DX: R21 Rash and other nonspecific skin eruption (principal) | CPT/HCPCS: 87070; 87075; 87205 ==

== ENCOUNTER → 2024-06-22 06:59 | Outpatient (REF) | payer BC, SELFPAY ==
[2024-06-22 08:22] LABS: Hematocrit 40.8 % (37.0-47.0); Hemoglobin 13.3 g/dL (12.0-16.0); Mean Corp Hgb Conc. 32.6 g/dL (33.0-37.0); Mean Corpuscular Hgb 27.3 pg (27.0-31.0); Mean Corpuscular Volume 83.6 fL (81.0-99.0); Platelet Count 53 10^3/uL (130-400); Red Blood Cell Count 4.88 10^6/uL (4.20-5.40)
[2024-06-22 08:42] LABS: ALT (SGPT) 47 U/L (0-35); AST (SGOT) 32 U/L (14-36); Albumin 4.3 g/dl (3.5-5.0); Alkaline Phosphatase 116 U/L (38-126); Blood Urea Nitrogen 17 mg/dl (7-17); Calcium 9.4 mg/dl (8.4-10.2); Carbon Dioxide 26 mmol/L (22-30); Chloride 104 mmol/L (98-107); Glucose 109 mg/dl (70-99); HDL Cholesterol 48 mg/dl; Iron 62 ug/dl (37-170); LDL Cholesterol, Calculated 118 mg/dl; Sodium 145 mmol/L (135-145); Total Bilirubin 0.5 mg/dl (0.2-1.3); Total Cholesterol 187 mg/dl (50-199); Total Protein 7.5 g/dl (6.3-8.2); Triglyceride 108 mg/dl (10-149); Very Low Density Lipoprotein 21 mg/dl (0-30); eGFR > 60.00
[2024-06-22 08:51] LABS: Percent Saturation 18 % (20-50); Total Iron Binding Capacity 337 ug/dl (265-497)
[2024-06-22 09:51] LABS: Glycohemoglobin (HgbA1c) 5.7 % (4.0-5.6)
[2024-06-22 10:30] LABS: TSH Reflex To Free T4 4.22 uIU/ml (0.47-4.68)
[2024-06-22 10:34] LABS: Ferritin 12.5 ng/ml (11.1-264.0)
[2024-06-22 11:30] LABS: tTG IgA Antibody 3.4 EU/ml (0-19); tTG IgG Antibody 9.6 EU/ml (0-19)
[2024-06-22 23:36] LABS: IgA 136 mg/dl (70-400)
[2024-06-24 17:58] LABS: Endomysial IgA Antibody Titer <1:10 (<1:10)
== END ==
LOC: REG 06:59
PROVIDERS: ATTENDING PHYSICIAN Internal Medicine Gastroenterology; FAMILY PHYSICIAN Physician Assistant Medical
DX: K90.0 Celiac disease (principal); Z00.01 Encounter for general adult medical examination with abnormal findings; E78.2 Mixed hyperlipidemia; R73.03 Prediabetes; K76.0 Fatty (change of) liver, not elsewhere classified
CPT/HCPCS: 36415; 80053; 80061; 82728; 82784; 83036; 83516; 83540; 83550; 84443; 85027; 86231

== ENCOUNTER → 2024-08-05 15:18 | Outpatient (REF) | payer BC, SELFPAY ==
[2024-08-05 15:52] LABS: % Eosinophils 0.6 % (0-6); % Immature Granulocytes 0.3 % (0-0.5); % Lymphocytes 35.2 % (20.5-51.1); % Monocytes 6.4 % (1.7-9.3); % Neutrophils 57.5 % (42.2-75.2); Absolute Lymphocytes 2.3 10^3/uL (1.2-3.4); Absolute Monocytes 0.4 10^3/uL (0.1-0.6); Absolute Neutrophils 3.7 10^3/uL (1.4-6.5); Hematocrit 40.9 % (37.0-47.0); Hemoglobin 13.9 g/dL (12.0-16.0); Mean Corpuscular Volume 85.4 fL (81.0-99.0); Nucleated Red Blood Cells % 0 %; Red Blood Cell Count 4.79 10^6/uL (4.20-5.40); White Blood Cell Count 6.4 10^3/uL (4.8-10.8)
[2024-08-05 16:24] LABS: Platelet Count 56 10^3/uL (130-400)
== END ==
LOC: RAD 15:18
PROVIDERS: ATTENDING PHYSICIAN Family Medicine; FAMILY PHYSICIAN Physician Assistant Medical
DX: M79.89 Other specified soft tissue disorders (principal); I82.811 Embolism and thrombosis of superficial veins of right lower extremity
CPT/HCPCS: 36415; 85025; 93971

== ENCOUNTER → 2024-10-03 18:41 | Outpatient (REF) | payer BC, SELFPAY | LOC: WDC 18:41 | PROVIDERS: ATTENDING PHYSICIAN Nurse Practitioner Adult Health; FAMILY PHYSICIAN Physician Assistant Medical | DX: Z12.31 Encounter for screening mammogram for malignant neoplasm of breast (principal) | CPT/HCPCS: 77063; 77067 ==

== ENCOUNTER → 2024-10-26 07:18 | Outpatient (REF) | payer BC, SELFPAY ==
[2024-10-26 08:40] LABS: % Basophils 0.2 % (0-2); % Eosinophils 1.3 % (0-6); % Immature Granulocytes 0.2 % (0-0.5); % Lymphocytes 38.3 % (20.5-51.1); % Monocytes 8.8 % (1.7-9.3); % Neutrophils 51.2 % (42.2-75.2); Absolute Eosinophils 0.1 10^3/uL (0-0.7); Absolute Monocytes 0.5 10^3/uL (0.1-0.6); Absolute Neutrophils 2.7 10^3/uL (1.4-6.5); Hematocrit 42.4 % (37.0-47.0); Hemoglobin 13.7 g/dL (12.0-16.0); Mean Corp Hgb Conc. 32.3 g/dL (33.0-37.0); Mean Corpuscular Hgb 27.8 pg (27.0-31.0); Mean Platelet Volume 14.4 fL (7.4-10.4); Nucleated Red Blood Cells % 0 %; Platelet Count 62 10^3/uL (130-400); Red Blood Cell Count 4.93 10^6/uL (4.20-5.40); Red Cell Dist. Width 13.8 % (11.5-14.5); White Blood Cell Count 5.2 10^3/uL (4.8-10.8)
[2024-10-26 09:07] LABS: Blood Urea Nitrogen 20 mg/dl (7-17); Calcium 9.5 mg/dl (8.4-10.2); Carbon Dioxide 26 mmol/L (22-30); Chloride 103 mmol/L (98-107); Glucose 102 mg/dl (70-99); Potassium 3.9 mmol/L (3.5-5.1); Sodium 139 mmol/L (135-145); eGFR > 60.00
== END ==
LOC: REG 07:18
PROVIDERS: ATTENDING PHYSICIAN Orthopaedic Surgery; FAMILY PHYSICIAN Physician Assistant Medical
DX: Z01.818 Encounter for other preprocedural examination (principal)
CPT/HCPCS: 36415; 80048; 85025

== ENCOUNTER 2024-11-01 06:18 | Day surgery (SDC) | payer BC, SELFPAY ==
[2024-11-01 10:43] VITALS: BP 111/71
[2024-11-01 10:45] VITALS: BMI 35.8
[2024-11-01 13:19] VITALS: BP 122/61
== END 2024-11-01 13:24 | disposition home or self-care (01) ==
LOC: SDS 06:18
PROVIDERS: ATTENDING PHYSICIAN Orthopaedic Surgery
PROC: 0LN60ZZ Release Left Lower Arm and Wrist Tendon, Open Approach (ICD-10-PCS; 2024-11-01)
DX: M65.4 Radial styloid tenosynovitis [de Quervain] (principal)
CPT/HCPCS: 25000

== ENCOUNTER 2025-02-02 18:32 | Emergency (ER) | payer BC, SELFPAY ==
[2025-02-02 18:34] VITALS: BP 123/76
[2025-02-02 18:58] LABS: % Basophils 0.2 % (0-2); % Eosinophils 1.2 % (0-6); % Immature Granulocytes 0.2 % (0-0.5); % Lymphocytes 36.6 % (20.5-51.1); % Monocytes 9.9 % (1.7-9.3); % Neutrophils 51.9 % (42.2-75.2); Absolute Eosinophils 0.1 10^3/uL (0-0.7); Absolute Lymphocytes 2.4 10^3/uL (1.2-3.4); Absolute Monocytes 0.7 10^3/uL (0.1-0.6); Absolute Neutrophils 3.4 10^3/uL (1.4-6.5); Hematocrit 41.4 % (37.0-47.0); Hemoglobin 13.8 g/dL (12.0-16.0); Mean Corp Hgb Conc. 33.3 g/dL (33.0-37.0); Mean Corpuscular Hgb 28.3 pg (27.0-31.0); Mean Platelet Volume 14.2 fL (7.4-10.4); Nucleated Red Blood Cells % 0 %; Platelet Count 67 10^3/uL (130-400); Red Blood Cell Count 4.87 10^6/uL (4.20-5.40); Red Cell Dist. Width 13.5 % (11.5-14.5); White Blood Cell Count 6.6 10^3/uL (4.8-10.8)
[2025-02-02 19:05] LABS: ALT (SGPT) 76 U/L (0-35); AST (SGOT) 45 U/L (14-36); Albumin 4.2 g/dl (3.5-5.0); Alkaline Phosphatase 98 U/L (38-126); Blood Urea Nitrogen 15 mg/dl (7-17); Calcium 9.4 mg/dl (8.4-10.2); Carbon Dioxide 28 mmol/L (22-30); Chloride 104 mmol/L (98-107); Glucose 95 mg/dl (70-99); Potassium 4.1 mmol/L (3.5-5.1); Sodium 139 mmol/L (135-145); Total Bilirubin 0.7 mg/dl (0.2-1.3); Total Protein 7.9 g/dl (6.3-8.2); eGFR > 60.00
== END 2025-02-02 20:02 | disposition left against medical advice (07) ==
LOC: EMR 18:32
PROVIDERS: EMERGENCY PHYSICIAN Emergency Medicine; FAMILY PHYSICIAN Family Medicine
DX: R22.41 Localized swelling, mass and lump, right lower limb (principal); Z53.21 Procedure and treatment not carried out due to patient leaving prior to being seen by health care provider
CPT/HCPCS: 80053; 85025; 93971

== ENCOUNTER → 2025-05-04 20:37 | Outpatient (REF) | payer BC, SELFPAY | LOC: MRI 3T 20:37 | PROVIDERS: ATTENDING PHYSICIAN Orthopaedic Surgery Hand Surgery; FAMILY PHYSICIAN Physician Assistant Medical | DX: M54.12 Radiculopathy, cervical region (principal) | CPT/HCPCS: 72141 ==

== ENCOUNTER → 2025-06-30 18:13 | Outpatient (REF) | payer BC, SELFPAY ==
[2025-06-30 18:42] LABS: Hematocrit 42.6 % (37.0-47.0); Hemoglobin 14.1 g/dL (12.0-16.0); Mean Corp Hgb Conc. 33.1 g/dL (33.0-37.0); Mean Corpuscular Volume 86.1 fL (81.0-99.0); Nucleated Red Blood Cells % 0 %; Red Cell Dist. Width 13.7 % (11.5-14.5)
[2025-06-30 19:18] LABS: Platelet Count 53 10^3/uL (130-400)
== END ==
LOC: CLAB 18:13
PROVIDERS: ATTENDING PHYSICIAN Emergency Medicine
DX: R58 Hemorrhage, not elsewhere classified (principal)
CPT/HCPCS: 36415; 85025

== ENCOUNTER → 2025-07-21 10:29 | Outpatient (REF) | payer BC, SELFPAY | LOC: CPAP 10:29 | PROVIDERS: ATTENDING PHYSICIAN Nurse Practitioner Adult Health | DX: Z01.419 Encounter for gynecological examination (general) (routine) without abnormal findings (principal); N87.9 Dysplasia of cervix uteri, unspecified | CPT/HCPCS: G0123 ==

== ENCOUNTER 2025-08-28 22:05 | Emergency (ER) | payer BC, SELFPAY ==
[2025-08-28 22:07] VITALS: BP 129/90
[2025-08-28 22:34] LABS: Hematocrit 41.7 % (37.0-47.0); Hemoglobin 13.7 g/dL (12.0-16.0); Mean Corp Hgb Conc. 32.9 g/dL (33.0-37.0); Mean Corpuscular Volume 86.0 fL (81.0-99.0); Nucleated Red Blood Cells % 0 %; Red Cell Dist. Width 13.7 % (11.5-14.5)
[2025-08-28 22:35] LABS: ALT (SGPT) 73 U/L (0-35); AST (SGOT) 41 U/L (14-36); Albumin 4.4 g/dl (3.5-5.0); Alkaline Phosphatase 102 U/L (38-126); Blood Urea Nitrogen 9 mg/dl (7-17); Calcium 9.2 mg/dl (8.4-10.2); Carbon Dioxide 31 mmol/L (22-30); Chloride 103 mmol/L (98-107); Glucose 110 mg/dl (70-99); Lipase 137 U/L (23-300); Potassium 3.6 mmol/L (3.5-5.1); Sodium 138 mmol/L (135-145); Total Protein 8.4 g/dl (6.3-8.2); eGFR > 60.00
[2025-08-28 22:38] LABS: Platelet Count 59 10^3/uL (130-400)
[2025-08-28] MEDS: ZOFRAN 4 MG IV (22:57)
[2025-08-28] MEDS: NSS 1000 IV (22:57)
[2025-08-28 22:59] VITALS: BMI 37.9
[2025-08-28 23:05] LABS: Urine Character Clear (Clear)
[2025-08-28 23:11] LABS: Urine Red Blood Cell 0-2 /HPF (0-2); Urine Squamous Cell >30 /LPF (Few)
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
[2025-08-28] MEDS: TYLENOL 650 MG PO (23:47)
[2025-08-28 23:49] VITALS: BP 93/56
== END 2025-08-29 00:12 | disposition home or self-care (01) ==
LOC: EMR 22:05
PROVIDERS: Emergency Medicine; Physician Assistant; EMERGENCY PHYSICIAN Emergency Medicine; FAMILY PHYSICIAN Physician Assistant Medical
DX: K63.89 Other specified diseases of intestine (principal); D69.3 Immune thrombocytopenic purpura; K90.0 Celiac disease; K86.81 Exocrine pancreatic insufficiency; M79.7 Fibromyalgia; M06.9 Rheumatoid arthritis, unspecified; Z87.891 Personal history of nicotine dependence
CPT/HCPCS: 99284; 96374; 96361; 74177; 80053; 81003; 81015; 83690; 85025; 87086; Q9967